=== PATIENT | female | born 1950 | race Hispanic/Latino ===

== ENCOUNTER 2017-12-14 10:43 | Outpatient (CLI) | payer MEDICARE ==
--- NOTE | 2017-12-15 11:17 | Mammography Report ---
BILATERAL DIGITAL SCREENING MAMMOGRAM WITH CAD: 12/14/17 10:43:00 CLINICAL: Routine screening.History of left breast cancer status post left partial mastectomy in June 2016 followed by radiation therapy. COMPARISON:None available. Her last mammogram was in [place] and she does not remember where she had it. FINDINGS: The right breast is heterogeneously dense, which may obscure small masses. An oval right circumscribed density on both views and a right circumscribed density on the exaggerated CC view require additional imaging. Left upper outer postsurgical scar with surgical clips. Moderate skin thickening of the left breast. Bilateral benign calcifications. IMPRESSION: Right circumscribed densities requiring additional imaging. BI-RADS CATEGORY: 0--Needs Additional Imaging RECOMMENDATION: Recall for right spot magnification views and ultrasound of the upper outer right breast. COMMENT: Patient follow-up letters are generated via our [employer] application.
== END 2017-12-14 10:44 | disposition home or self-care (01) ==
LOC: SPVWC 10:43
PROVIDERS: ATTEND Internal Medicine Hematology & Oncology
DX: Z12.31 Encounter for screening mammogram for malignant neoplasm of breast (principal)
CPT/HCPCS: 77067

== ENCOUNTER 2018-01-01 08:38 | Outpatient (CLI) | payer MEDICARE ==
--- NOTE | 2018-01-01 09:58 | Ultrasound Report ---
RIGHT DIGITAL DIAGNOSTIC MAMMOGRAM and RIGHT BREAST ULTRASOUND: 01/01/18 08:38:00 CLINICAL: Recalled for asymmetry. COMPARISON:12/14/17 screening. FINDINGS: Spot magnification views demonstrate a persistent oval circumscribed density approximately 5 cm from the nipple. Targeted ultrasound of the right breast demonstrated an oval heterogeneous hypoechoic solid mass at 10 o'clock 4 cm from the nipple. It measures 5 x 4 x 3 mm. It has a slight micro-lobular margin on antiradial views. IMPRESSION: Solid 5 mm right breast mass at 10 o'clock 4 cm from the nipple.Recommend ultrasound-guided needle biopsy to exclude malignancy. BI-RADS CATEGORY: 4--Suspicious I discussed the findings and the recommendation for needle core biopsy with the patient at the time of the examination. ACR BI-RADS MAMMOGRAPHIC CODES: 0 = Needs additional imaging evaluation; 1 = Negative; 2 = Benign; 3 = Probably benign; 4 = Suspicious; 5 = Malignant; 6 = Known biopsy-proven malignancy COMMENT: 1. Dense breast tissue, i.e., adenosis, fibrocystic changes, etc., may obscure an underlying neoplasm. 2. Approximately 10% of cancers are not detected with mammography. 3. A negative mammography report should not delay biopsy if a clinically suspicious mass is present. COMMENT: Patient follow-up letters are generated via our [employer] application.
== END 2018-01-01 08:39 | disposition home or self-care (01) ==
LOC: SPVWC 08:38
PROVIDERS: ATTEND Internal Medicine Hematology & Oncology
DX: N63.14 Unspecified lump in the right breast, lower inner quadrant (principal)

== ENCOUNTER 2018-09-13 10:14 | Outpatient (CLI) | payer MEDICARE ==
--- NOTE | 2018-09-13 10:48 | Mammography Report ---
BONE DENSITY STUDY: DEFINITIONS: BMD = Bone Mineral Density T-score = BMD related to mean peak bone mass of young adult (mean expressed in Standard Deviation) Z-score = Age matched BMD expressed in SD World Health Organization (WHO) Diagnostic Criteria Normal T-score > -1 SD Osteopenia T-score between -1 and -2.4 SD Osteoporosis T-score -2.5 SD or below FINDINGS: The weighted average BMD of lumbar spine L1-L4 is 1.28 with a T-score of 2.1. The weighted average BMD of hip is 0.88 with a T-score of -0.5. IMPRESSION: The patient's T-score is diagnostic for normal bone density and low relative risk for fracture. NOTE: BMD is not the only risk factor for fracture; also consider factors such as the patient's age, risk of falling, previous osteoporotic fracture, family history of osteoporotic fractures, current smoker, and low body weight. Montgomery's triangle is a region of interest in femur, predominantly of trabecular bone. It is not a true anatomic site, and [facility] does not recommend its use clinically.
== END 2018-09-13 10:15 | disposition home or self-care (01) ==
LOC: SPVWC 10:14
PROVIDERS: ATTEND Internal Medicine Hematology & Oncology
DX: C50.212 Malignant neoplasm of upper-inner quadrant of left female breast (principal); Z78.0 Asymptomatic menopausal state; Z79.811 Long term (current) use of aromatase inhibitors
CPT/HCPCS: 77080

== ENCOUNTER 2018-12-25 13:25 | Outpatient (CLI) | payer MEDICARE ==
--- NOTE | 2018-12-26 11:29 | Mammography Report ---
BILATERAL DIGITAL SCREENING MAMMOGRAM WITH CAD INDICATION: Routine screening mammography. TECHNIQUE: Digital bilateral 2D mammography was obtained in the craniocaudal and mediolateral obliq ue projections. This examination was interpreted with the benefit of Computer-Aided Detection analysi s. COMPARISON: 12/14/2017 FINDINGS: Breast Density: The breasts are heterogeneously dense, which may obscure small masses. No mass, architectural distortion or suspicious calcifications. The left breast is smaller than the r ight with benign upper postsurgical scar and surgical clips. Bilateral benign calcifications. IMPRESSION:No mammographic evidence of malignancy. BI-RADS Category 2: Benign. No mammographic evidence of malignancy. Recommend routine screening ma mmography in one year. A "normal" or negative report should not discourage follow up or biopsy of a clinically significant f inding. A written summary of these findings will be mailed to the patient. The patient will be entered into a mammography reporting system which will generate a reminder letter for the patient's next appointmen t at the appropriate interval. The [employer] recommends yearly mammograms starting at age 40 and continuing as l ryan as a woman is in good health. Breast MRI is recommended for women with an approximate 20-25% or greater lifetime risk of breast cancer, including women with a strong family history of breast or ova yehuda cancer or who have been treated for Hodgkin's disease. Signer Name: Santo Davidson MD Signed: 12/26/2018 11:24 AM Workstation Name: [id number]
== END 2018-12-25 13:26 | disposition home or self-care (01) ==
LOC: SPVWC 13:25
PROVIDERS: ATTEND Internal Medicine Hematology & Oncology
DX: Z12.31 Encounter for screening mammogram for malignant neoplasm of breast (principal)
CPT/HCPCS: 77067

== ENCOUNTER 2019-12-31 11:00 | Outpatient (CLI) | payer MEDICARE ==
--- NOTE | 2019-12-31 15:27 | Mammography Report ---
DIGITAL SCREENING MAMMOGRAM WITH CAD, 12/31/2019 INDICATION: Routine screening mammography. TECHNIQUE: Digital bilateral 2D mammography was obtained in the craniocaudal and mediolateral obliq ue projections. This examination was interpreted with the benefit of Computer-Aided Detection analysi s. COMPARISON: 12/25/2018. FINDINGS: Breast Density: There are scattered areas of fibroglandular density. There is no evidence of dominant mass, suspicious calcifications or architectural distortion in eithe r breast. Postbiopsy change left breast. Bilateral benign calcification. IMPRESSION: Follow up recommendation: Routine yearly BI-RADS Category 2: Benign. A "normal" or negative report should not discourage follow up or biopsy of a clinically significant f inding. A written summary of these findings will be mailed to the patient. The patient will be entered into a mammography reporting system which will generate a reminder letter for the patient's next appointmen t at the appropriate interval. The [employer] recommends yearly mammograms starting at age 40 and continuing as l ryan as a woman is in good health. Breast MRI is recommended for women with an approximate 20-25% or greater lifetime risk of breast cancer, including women with a strong family history of breast or ova yehuda cancer or who have been treated for Hodgkin's disease. Signer Name: Edward Ledbetter MD Signed: 12/31/2019 3:23 PM Workstation Name: [id number]
== END 2019-12-31 11:01 | disposition home or self-care (01) ==
LOC: SPVWC 11:00
PROVIDERS: ATTEND Internal Medicine Hematology & Oncology
DX: Z12.31 Encounter for screening mammogram for malignant neoplasm of breast (principal); N64.89 Other specified disorders of breast
CPT/HCPCS: 77067

== ENCOUNTER 2021-01-07 09:01 | Outpatient (CLI) | payer MEDICARE ==
--- NOTE | 2021-01-07 13:11 | Mammography Report ---
DIGITAL SCREENING MAMMOGRAM WITH CAD, 01/07/2021 CLINICAL INFORMATION / INDICATION: Routine screening mammography. TECHNIQUE: Digital bilateral 2D mammography was obtained in the craniocaudal and mediolateral obliqu e projections. This examination was interpreted with the benefit of Computer-Aided Detection analysis . COMPARISON: 12/25/2018, 12/31/2019 FINDINGS: Breast Density: There are scattered areas of fibroglandular density. No dominant mass, suspicious calcifications, or architectural distortion in either breast. Right marco st biopsy clip. Benign bilateral calcifications. Postlumpectomy and radiation change, left breast. IMPRESSION: No mammographic evidence of malignancy. Follow up recommendation: Routine yearly BI-RADS Category 2: Benign. A "normal" or negative report should not discourage follow up or biopsy of a clinically significant f inding. A written summary of these findings will be mailed to the patient. The patient will be entered into a mammography reporting system which will generate a reminder letter for the patient's next appointmen t at the appropriate interval. The [employer] recommends yearly mammograms starting at age 40 and continuing as l ryan as a woman is in good health. Breast MRI is recommended for women with an approximate 20-25% or greater lifetime risk of breast cancer, including women with a strong family history of breast or ova yehuda cancer or who have been treated for Hodgkin's disease. Signer Name: Radha Ng MD Signed: 01/07/2021 1:06 PM Workstation Name: [id number]
== END 2021-01-07 09:02 | disposition home or self-care (01) ==
LOC: SPVWC 09:01
PROVIDERS: ATTEND Internal Medicine Hematology & Oncology
DX: Z12.31 Encounter for screening mammogram for malignant neoplasm of breast (principal)
CPT/HCPCS: 77067

== ENCOUNTER 2022-01-11 13:33 | Outpatient (CLI) | payer MEDICARE ==
--- NOTE | 2022-01-12 11:21 | Mammography Report ---
DIGITAL SCREENING MAMMOGRAM WITH CAD, 01/11/2022 CLINICAL INFORMATION / INDICATION: Routine screening mammography. TECHNIQUE: Digital bilateral 2D mammography was obtained in the craniocaudal and mediolateral oblique projections. This examination was interpreted with the benefit of Computer-Aided Detection analysis. COMPARISON: 01/07/2021 FINDINGS: Breast Density: There are scattered areas of fibroglandular density. No dominant mass, suspicious calcifications, or architectural distortion in either breast. Stable postoperative changes from prior lumpectomy within the upper outer quadrant of the left breast and surrounding postoperative clips. Stable diffuse bilateral calcifications with benign morphology and distribution. No suspicious change since the prior exam. IMPRESSION: No mammographic evidence of malignancy. Follow up recommendation: Routine yearly screening mammogram. BI-RADS Category 2: BENIGN. A "normal" or negative report should not discourage follow up or biopsy of a clinically significant f inding. A written summary of these findings will be mailed to the patient. The patient will be entered into a mammography reporting system which will generate a reminder letter for the patient's next appointmen t at the appropriate interval. The [employer] recommends yearly mammograms starting at age 40 and continuing as l ryan as a woman is in good health. Breast MRI is recommended for women with an approximate 20-25% or greater lifetime risk of breast cancer, including women with a strong family history of breast or ova yehuda cancer or who have been treated for Hodgkin's disease. Signer Name: Gilberto Mcdaniel MD Signed: 01/12/2022 11:17 AM Workstation Name: [id number]
== END 2022-01-11 13:34 | disposition home or self-care (01) ==
LOC: SPVWC 13:33
PROVIDERS: ATTEND Internal Medicine Hematology & Oncology
DX: Z12.31 Encounter for screening mammogram for malignant neoplasm of breast (principal)
CPT/HCPCS: 77067